=== PATIENT | female | born 1935 ===

== ENCOUNTER → 2020-09-24 08:26 | Outpatient (CLI) | payer OTHER ==
[~2020-09-24 08:26] MED LIST: AMOX-CLAV 875-1 EACH PO; CLONAZEPAM2 M1 PO; DILTIAZEM ER240 M3 PO; GABAPENTIN300 M2 PO; GLIMEPIRIDE4 M1 PO; HYDROCHLOROTH12.5 MG PO; OMEPRAZOLE40 MG PO; RESTORIL30 MG PO; ULTRAM50 MG PO; ZESTRIL20 MG PO; ZOCOR40 MG PO
== END | disposition home or self-care (01) ==
LOC: EKG 08:26
PROVIDERS: ATTEND Internal Medicine Cardiovascular Disease
DX: I10 Essential (primary) hypertension (principal)

== ENCOUNTER → 2020-10-09 06:14 | Outpatient (CLI) | payer OTHER | END | disposition home or self-care (01) | LOC: LAB 06:14 | PROVIDERS: ATTEND Surgery | DX: K62.3 Rectal prolapse (principal); R15.9 Full incontinence of feces; K59.09 Other constipation; K62.89 Other specified diseases of anus and rectum; Z03.818 Encounter for observation for suspected exposure to other biological agents ruled out ==

== ENCOUNTER 2020-10-09 06:25 | Inpatient (IN) | payer OTHER ==
[~2020-10-09 06:25] MED LIST changes: -AMOX-CLAV 875-1 EACH PO; -ULTRAM50 MG PO
[2020-10-10] MEDS ORDERED: ULTRAM50 MG PO ×2 (12:42)
[2020-10-10] MEDS ORDERED: AMOX-CLAV 875-1 EACH PO ×2 (12:43)
== END 2020-10-10 14:27 | disposition home or self-care (01) | DRG 331 ==
LOC: CIR.AMB 06:25 → O/R 15:21 → SURH 15:21
PROVIDERS: ADMIT Surgery; ATTEND Surgery
PROC: 0DBP0ZZ Excision of Rectum, Open Approach (ICD-10-PCS; 2020-10-09)
PROC: 0DUR07Z Supplement Anal Sphincter with Autologous Tissue Substitute, Open Approach (ICD-10-PCS; 2020-10-09)
PROC: 3E0T3BZ Introduction of Anesthetic Agent into Peripheral Nerves and Plexi, Percutaneous Approach (ICD-10-PCS; 2020-10-09)
PROC: 3E0F7SF Introduction of Other Gas into Respiratory Tract, Via Natural or Artificial Opening (ICD-10-PCS; 2020-10-09)
PROC: 0DBN0ZZ Excision of Sigmoid Colon, Open Approach (ICD-10-PCS; principal; 2020-10-09 12:00)
DX: K62.3 Rectal prolapse (principal); K62.89 Other specified diseases of anus and rectum; R15.9 Full incontinence of feces; Z20.822 Contact with and (suspected) exposure to COVID-19